=== PATIENT | female | born 1950 | race Caucasian/White ===

== ENCOUNTER 2020-09-27 15:58 | Outpatient (CLI) | payer MEDICARE | END 2020-09-27 15:59 | disposition home or self-care (01) | LOC: BICRAD 15:58 | PROVIDERS: ATTEND Internal Medicine Cardiovascular Disease | DX: R06.02 Shortness of breath (principal) | CPT/HCPCS: 36415; 71046; 80053; 82728; 83880; 84443; 84479; 85025 ==